=== PATIENT | female | born 1980 | race Caucasian/White ===

== ENCOUNTER 2017-02-22 16:42 | Emergency (ER) | payer MEDICAID ==
[~2017-02-22] VITALS: Ht 149.9 cm; Wt 62.6 kg
[~2017-02-22 16:42] MED LIST: NORCO 5-325 TA1 EACH ORAL; NORVASC2.5 MG ORAL
[2017-02-22 17:20] LABS: APPEARANCE,URINE CLEAR; KETONES,URINE NEGATIVE (NEGATIVE); LEUKOCYTE ESTERASE ,URINE 1+ (NEGATIVE); NITRITE,URINE NEGATIVE (NEGATIVE); PH,URINE 7 (4.5-8.0); PROTEIN,URINE 1+ (NEGATIVE); UROBILINOGEN,URINE NORMAL MG/DL (0.0-1.0)
[2017-02-22 17:31] LABS: BACTERIA,URINE FEW /HPF; SQUAMOUS EPITHELIAL CELL,UR FEW /LPF (NONE/OCC)
--- NOTE | 2017-02-22 17:47 | Emergency Room Report ---
History of Present Illness General Chief Complaint: General Complaint Source: Patient (Stephany Joseph) Present Illness HPI 36 YO female presents to the ED c/o left sided flank pain that radiates into the abdomen intermittently x 3 days. pt. reports episodes of sharp 10/10 in severity of pain then no pain at all. pt. states after her last episode of flank pain she felt as though her stomach became swollen, with tenderness. pt. denies nausea/vomiting, constipation, diarrhea, hematuria, frequency, , urgency. pt. denies fevers and reports intermittent chills. pt also reports recent hx of cough x 3 days. coughing exacerbates pain. denies trauma or fall. denies cardiac hx. Denies CP, Palpitations, LOC, AMS, dizziness, Changes in Vision, Sensation, paresthesias, or a sudden severe headache. (Stephany Joseph) Allergies: Coded Allergies: No Known Allergies (Unverified , 01/05/16) Patient History Past Medical History: see triage record Past Surgical History: none Pertinent Family History: none Last Menstrual Period: 02/18/17 Now: No : 4 Para: 3 Reviewed Nursing Documentation: PMH: Agreed, PSxH: Agreed (Stephany Joseph) Nursing Documentation-PMH Past Medical History: No History, Except For Hx Hypertension: Yes (Stephany Joseph) Review of Systems All Other Systems: negative except mentioned in HPI (Stephany Joseph) Physical Exam Vital Signs Date Time Temp Pulse Resp B/P Pulse Ox O2 Delivery O2 Flow Rate FiO2 02/22/17 16:51 98.4 89 14 153/92 100 Room Air Sp02 EP Interpretation: reviewed, normal General Appearance: no apparent distress, alert, GCS 15, non-toxic Head: normocephalic, atraumatic Eyes: bilateral eye PERRL, bilateral eye normal inspection ENT: hearing grossly normal, normal pharynx, no angioedema, normal voice, TMs + canals normal, uvula midline Neck: full range of motion, supple/symm/no masses Respiratory: chest non-tender, lungs clear, normal breath sounds, speaking full sentences Cardiovascular #1: regular rate, rhythm, no edema Gastrointestinal: normal bowel sounds, non tender, soft, no bruit, non- distended, no guarding, no rebound Rectal: deferred Genitourinary: normal inspection, no CVA tenderness Musculoskeletal: back normal, gait/station normal, normal range of motion, non- tender, tender - left sided paraspinal TTP, no midline TTP, no bruises. Neurologic: alert, oriented x3, responsive, motor strength/tone normal, sensory intact, normal gait, speech normal Psychiatric: judgement/insight normal, memory normal, mood/affect normal, no suicidal/homicidal ideation Skin: normal color, no rash, warm/dry, well hydrated Lymphatic: no adenopathy (Stephany Joseph) Medical Decision Making PA Attestation Dr. Hayward is my supervising Physician whom patient management has been discussed with. (Stephany Joseph) Diagnostic Impression: Primary Impression: Muscle strain Additional Impression: Flank pain, acute ER Course 36 YO female presents to the ED c/o left sided flank pain that radiates into the abdomen intermittently x 3 days. pt. reports episodes of sharp 10/10 in severity of pain then no pain at all. pt. states after her last episode of flank pain she felt as though her stomach became swollen, with tenderness. pt. denies nausea/vomiting, constipation, diarrhea, hematuria, frequency, , urgency. pt. denies fevers and reports intermittent chills. pt also reports recent hx of cough x 3 days. denies cardiac hx. Ddx considered but are not limited to Diverticulitis, acute appy, diarrhea,UC, PUD, GE, pancreatitis, gallstone, kidney stone, pyelonephritis, UTI, obstruction. Vital signs: are WNL, pt. is afebrile H&PE are most consistent with possible UTI , most likely muscle strain secondary to coughing. or passed kidney stone. pt. is NAD, non-toxic ORDERS: -CBC, CMP, lipase: all unremarkable - UA: no evidence of infection, some rbc's and occult blood consistent with pt. hx of being on period. ED INTERVENTIONS: -none required at this time. pt. does not have any pain, NAD DISCHARGE: At this time pt. is stable for d/c to home. Will provide printed patient care instructions, and any necessary prescriptions. Care plan and follow up instructions have been discussed with the patient prior to discharge. Labs Test 02/22/17 16:58 02/22/17 17:20 Urine Color Pale yellow Urine Appearance Clear Urine pH 7 (4.5-8.0) Urine Specific [place] 1.005 (1.005-1.035) Urine Protein 1+ (NEGATIVE) Urine Glucose (UA) Negative (NEGATIVE) Urine Ketones Negative (NEGATIVE) Urine Occult Blood 5+ (NEGATIVE) Urine Nitrite Negative (NEGATIVE) Urine Bilirubin Negative (NEGATIVE) Urine Urobilinogen Normal MG/DL (0.0-1.0) Urine Leukocyte Esterase 1+ (NEGATIVE) Urine RBC 5-10 /HPF (0 - 2) Urine WBC 2-4 /HPF (0 - 2) Urine Squamous Epithelial Cells Few /LPF (NONE/OCC) Urine Bacteria Few /HPF (NONE) Urine HCG, Qualitative Negative White Blood Count 7.6 K/UL (4.8-10.8) Red Blood Count 4.71 M/UL (4.20-5.40) Hemoglobin 10.5 G/DL (12.0-16.0) Hematocrit 35.5 % (37.0-47.0) Mean Corpuscular Volume 75 FL (80-99) Mean Corpuscular Hemoglobin 22.3 PG (27.0-31.0) Mean Corpuscular Hemoglobin Concent 29.6 G/DL (32.0-36.0) Red Cell Distribution Width 15.2 % (11.6-14.8) Platelet Count 339 K/UL (150-450) Mean Platelet Volume 7.2 FL (6.5-10.1) Neutrophils (%) (Auto) 76.8 % (45.0-75.0) Lymphocytes (%) (Auto) 18.2 % (20.0-45.0) Monocytes (%) (Auto) 4.4 % (1.0-10.0) Eosinophils (%) (Auto) 0.1 % (0.0-3.0) Basophils (%) (Auto) 0.5 % (0.0-2.0) Sodium Level 141 mEQ/L (135-145) Potassium Level 3.3 mEQ/L (3.4-4.9) Chloride Level 99 mEQ/L (98-107) Carbon Dioxide Level 24 mEQ/L (20-30) Anion Gap 18 (5-15) Blood Urea Nitrogen 6 mg/dL (7-23) Creatinine 0.6 mg/dL (0.5-0.9) Estimat Glomerular Filtration Rate > 60 mL/min (>60) Glucose Level 99 mg/dL (74-106) Calcium Level 9.1 mg/dL (8.6-10.2) Lipase 17 U/L (< 60) (Stephany Joseph) ER Course I evaluated this patient in the ED at [facility] with my advanced practice provider (Physician Bumper Machine Operator) colleague, who practices under my general supervision. My impressions concur with the advanced practice provider in regards to their obtained history of present illness, physical exam, general management, diagnosis, and disposition. In particular, I agree with PA-obtained interpretation of imaging, rhythm strip. For the evening and overnight shifts, we do not have the benefit of an in-house Radiologist to review xrays so our interpretation may be limited. Patients are to be discharged only with normal vital signs (or if we discussed a particular exception), a plan for follow-up care, and understand to return to the ED for worsening symptoms. Please see midlevel healthcare providers note for further details. (CHARU HAYWARD M.D.) Last Vital Signs Date Time Temp Pulse Resp B/P Pulse Ox O2 Delivery O2 Flow Rate FiO2 02/22/17 16:51 98.4 89 14 153/92 100 Room Air (Stephany Joseph) Disposition: HOME, SELF-CARE Condition: Stable Scripts Guaifenesin/Dextromethorphan (Robitussin Cough-Chest Dm Liq) 118 Ml Liquid 5 ML PO Q6HR, #118 ML Prov: Stephany Joseph 02/22/17 Acetaminophen* (TYLENOL EXTRA STRENGTH*) 500 Mg Tablet 500 MG ORAL Q6H, #30 TAB 0 Refills Prov: Stephany Joseph 02/22/17 Referrals: NOT CHOSEN [facility]/MD,REFERRING (PCP) Patient Instructions: Flank Pain, [id number], Muscle Strain, [id number] Additional Instructions: Take medications as directed. Follow up with PCP in 3-5 days Return sooner to ED if new symptoms occur, or current symptoms become worse. - Please note that this Emergency Department Report was dictated using Volexintensive care specialist technology software, occasionally this can lead to erroneous entry secondary to interpretation by the dictation equipment. Stephany Joseph Feb 22, 2017 17:47 CHARU HAYWARD M.D. Feb 25, 2017 14:06
[2017-02-22 17:48] LABS: ANION GAP 18 (5-15); BASOPHILS % (AUTO) 0.5 % (0.0-2.0); CALCIUM 9.1 mg/dL (8.6-10.2); CARBON DIOXIDE 24 mEQ/L (20-30); CHLORIDE 99 mEQ/L (98-107); CREATININE 0.6 mg/dL (0.5-0.9); EOSINOPHILS % (AUTO) 0.1 % (0.0-3.0); GLOMERULAR FILTRATION RATE > 60 mL/min (>60); HEMOLYSIS 0; LYMPHOCYTES % (AUTO) 18.2 % (20.0-45.0); MEAN CORPUSCULAR HEMOGLOBIN 22.3 PG (27.0-31.0); MEAN CORPUSCULAR HGB CONC 29.6 G/DL (32.0-36.0); MEAN CORPUSCULAR VOLUME 75 FL (80-99); MEAN PLATELET VOLUME 7.2 FL (6.5-10.1); MONOCYTES % (AUTO) 4.4 % (1.0-10.0); NEUTROPHILS % (AUTO) 76.8 % (45.0-75.0); PLATELET COUNT 339 K/UL (150-450); POTASSIUM 3.3 mEQ/L (3.4-4.9); RED BLOOD COUNT 4.71 M/UL (4.20-5.40); RED CELL DISTRIBUTION WIDTH 15.2 % (11.6-14.8); SODIUM 141 mEQ/L (135-145); WHITE BLOOD COUNT 7.6 K/UL (4.8-10.8)
[2017-02-22] MEDS ORDERED: TYLENOL EXTRA500 MG ORAL (18:22)
[2017-02-22] MEDS ORDERED: ROBITUSSIN COU118 M4 PO (18:22)
[2017-02-22 18:46] VITALS: BP 148/94
[2017-02-22 18:48] VITALS: BP 148/94
== END 2017-02-22 18:50 | disposition home or self-care (01) ==
LOC: EMR 17:01
DX: R10.9 Unspecified abdominal pain (principal); T14.8 Other injury of unspecified body region; I10 Essential (primary) hypertension; X58.XXXA Exposure to other specified factors, initial encounter; Y92.9 Unspecified place or not applicable; Y99.8 Other external cause status
CPT/HCPCS: 36415; 80048; 81003; 81025; 83690; 85025; 99284

== ENCOUNTER 2017-08-18 18:39 | Emergency (ER) | payer MEDICAID ==
[~2017-08-18] VITALS: Ht 160 cm; Wt 59.0 kg
[~2017-08-18 18:39] MED LIST changes: +ROBITUSSIN COU118 M4 PO; +TYLENOL EXTRA500 MG ORAL
[2017-08-18 19:08] VITALS: BP 144/88
[2017-08-18] MEDS ORDERED: ROBAXIN-750750 MG PO (19:54)
[2017-08-18] MEDS ORDERED: IBUPROFEN600 MG ORAL (19:54)
[2017-08-18 20:00] VITALS: BP 144/88
--- NOTE | 2017-08-18 22:45 | Emergency Room Report ---
History of Present Illness General Chief Complaint: Back Pain-No Injury Source: Patient Present Illness HPI The patient is a 37-year-old female presenting for upper back pain which began 4 days prior for no known reason. Pain is an 8/10 dull ache and is worse with arm movement. Patient also worse with deep breaths. She denies any known injury to this area. She has not tried any medications yet for the pain. She denies any other symptoms including nausea, vomiting, fever, chills, shortness of breath, chest pain Allergies: Coded Allergies: PENICILLINS (Verified Allergy, Unknown, 08/18/17) Patient History Past Medical History: see triage record Pertinent Family History: none Reviewed Nursing Documentation: PMH: Agreed, PSxH: Agreed Nursing Documentation-PMH Past Medical History: No History, Except For Hx Hypertension: Yes Review of Systems All Other Systems: negative except mentioned in HPI Physical Exam Vital Signs Date Time Temp Pulse Resp B/P (MAP) Pulse Ox O2 Delivery O2 Flow Rate FiO2 08/18/17 18:42 98.4 80 20 144/88 99 Room Air Sp02 EP Interpretation: reviewed, normal General Appearance: no apparent distress, alert, GCS 15, non-toxic Head: normocephalic, atraumatic Eyes: bilateral eye normal inspection, bilateral eye PERRL ENT: hearing grossly normal, normal pharynx, no angioedema, normal voice Neck: full range of motion, supple/symm/no masses Respiratory: chest non-tender, lungs clear, normal breath sounds, speaking full sentences Cardiovascular #1: regular rate, rhythm, no edema Musculoskeletal: normal inspection, back normal, normal range of motion, tender - bilat trapezii Neurologic: alert, oriented x3, responsive, motor strength/tone normal, sensory intact, speech normal Psychiatric: judgement/insight normal, memory normal, mood/affect normal, no suicidal/homicidal ideation Skin: normal color, no rash, warm/dry, well hydrated Medical Decision Making PA Attestation Dr. Hernandez is my supervising physician. Patient management was discussed with my supervising physician Diagnostic Impression: Primary Impression: Muscle strain ER Course The patient is a 37-year-old female presenting for upper back pain Ddx considered include but not limited to sprain/strain, fracture, contusion, bronchitis, among others PE: NAD There is tenderness to palpation over bilateral trapezii. Normal active range of motion of the neck and shoulders. Lungs are clear to auscultation bilaterally The patient will be treated with a prescription for Motrin and Robaxin and is to follow up with her primary doctor. ER precautions are given Chest X-Ray Diagnostic Results Chest X-Ray Diagnostic Results : Chest X-Ray Ordered: Yes # of Views/Limited/Complete: 1 View Indication: Other - upper back pain EP Interpretation: Yes Interpretation: no consolidation, no effusion Impression: No acute disease Electronically Signed by: GENET Brower Scribe Text My and my supervising physician's interpretation of the chest xrays are there is no consolidation, no effusion, no acute cardiopulmonary disease, no pneumothorax Last Vital Signs Date Time Temp Pulse Resp B/P (MAP) Pulse Ox O2 Delivery O2 Flow Rate FiO2 08/18/17 19:08 98.4 73 20 144/88 99 Room Air Status: improved Disposition: HOME, SELF-CARE Condition: Improved Scripts Ibuprofen* (MOTRIN*) 600 Mg Tablet 600 MG ORAL Q8H Y for For Pain, #30 TAB 0 Refills Prov: FAM NATION 08/18/17 Methocarbamol* (ROBAXIN-750*) 750 Mg Tablet 750 MG PO TID, #21 TAB 0 Refills Prov: FAM NATIONA. 08/18/17 Referrals: NOT CHOSEN [facility]/MD,REFERRING (PCP) Patient Instructions: Back Pain, Adult Additional Instructions: I discussed my findings with the patient. All questions and concerns have been answered. Treatment and medication compliance have been addressed. I advised the patient that they need to follow up with PMD in 3-5 days. Return to ED if symptoms worsen, new symptoms arise, or if needed for any reason. Patient verbalized understanding of discharge instructions. FAM NATION Aug 18, 2017 22:45
--- NOTE | 2017-08-19 12:04 | Diagnostic Imaging Report ---
Indication: Shortness of breath Comparison: 10/15/2016 chest one view Findings: Single view of the chest shows a normal cardiomediastinal silhouette. Pulmonary vasculature is normal. Lung are clear. Soft tissues and osseous structures are within normal limits. Impression: Normal chest.
== END 2017-08-18 20:00 | disposition home or self-care (01) ==
LOC: EMR 19:16
DX: S29.012A Strain of muscle and tendon of back wall of thorax, initial encounter (principal); X58.XXXA Exposure to other specified factors, initial encounter; Y93.9 Activity, unspecified; Y99.9 Unspecified external cause status; Z88.0 Allergy status to penicillin
CPT/HCPCS: 71010; 99284

== ENCOUNTER 2017-09-14 17:13 | Emergency (ER) | payer MEDICAID ==
[~2017-09-14] VITALS: Ht 154.9 cm; Wt 57.2 kg
[~2017-09-14 17:13] MED LIST changes: +IBUPROFEN600 MG ORAL; +ROBAXIN-750750 MG PO
[2017-09-14 17:32] VITALS: BP 147/84
[2017-09-14 18:17] LABS: APPEARANCE,URINE CLEAR; KETONES,URINE 2+ (NEGATIVE); LEUKOCYTE ESTERASE ,URINE 2+ (NEGATIVE); NITRITE,URINE NEGATIVE (NEGATIVE); PH,URINE 6 (4.5-8.0); PROTEIN,URINE NEGATIVE (NEGATIVE); UROBILINOGEN,URINE NORMAL MG/DL (0.0-1.0)
[2017-09-14 18:24] LABS: MEAN CORPUSCULAR HEMOGLOBIN 17.4 PG (27.0-31.0); MEAN CORPUSCULAR HGB CONC 27.1 G/DL (32.0-36.0); MEAN CORPUSCULAR VOLUME 64 FL (80-99); MEAN PLATELET VOLUME 6.3 FL (6.5-10.1); PLATELET COUNT 446 K/UL (150-450); RED BLOOD COUNT 4.04 M/UL (4.20-5.40); WHITE BLOOD COUNT 6.9 K/UL (4.8-10.8)
[2017-09-14 18:31] LABS: BACTERIA,URINE FEW /HPF; SQUAMOUS EPITHELIAL CELL,UR FEW /LPF (NONE/OCC)
[2017-09-14 18:40] LABS: ALANINE AMINOTRANSFERASE 11 U/L (12-78); ALBUMIN/GLOBULIN RATIO 1.1 (1.0-2.7); ANION GAP 14 mmol/L (5-15); ASPARTATE AMINO TRANSFERASE 14 U/L (15-37); CALCIUM 9.3 MG/DL (8.5-10.1); CARBON DIOXIDE 23 MMOL/L (21-32); CHLORIDE 102 MMOL/L (98-107); CREATININE 0.6 MG/DL (0.55-1.30); GLOMERULAR FILTRATION RATE > 60 mL/min (>60); LIPASE 94 U/L (73-393); POTASSIUM 3.1 MMOL/L (3.5-5.1); SODIUM 139 MMOL/L (136-145); TOTAL PROTEIN 8.5 G/DL (6.4-8.2)
--- NOTE | 2017-09-14 18:41 | Emergency Room Report ---
History of Present Illness General Chief Complaint: General Complaint Source: Patient, Medical Record Present Illness HPI Patient presents emergency department today complaining of difficulty swallowing. Patient states that she has been having difficulty swallowing over last couple weeks. She denies any nausea or vomiting. She complains of some mild chest discomfort when she status while. She denies any diarrhea patient denies any primary care physician. She denies any cough runny nose or sore throat. Symptoms noted to be moderate. No other modifying factors. No other associated signs and symptoms. No other complaints were noted.She is able to tolerate oral fluids and has been drinking water. Allergies: Coded Allergies: PENICILLINS (Verified Allergy, Unknown, 08/18/17) Patient History Past Medical History: none Past Surgical History: none Pertinent Family History: none Social History: Denies: smoking, alcohol use, drug use Last Menstrual Period: 09/08/17 Reviewed Nursing Documentation: PMH: Agreed, PSxH: Agreed Nursing Documentation-PMH Hx Hypertension: Yes Review of Systems All Other Systems: negative except mentioned in HPI Physical Exam Vital Signs Date Time Temp Pulse Resp B/P (MAP) Pulse Ox O2 Delivery O2 Flow Rate FiO2 09/14/17 17:24 97.9 86 18 147/84 100 Room Air Sp02 EP Interpretation: reviewed, normal General Appearance: normal inspection, well appearing, no apparent distress, alert Head: atraumatic Eyes: bilateral eye normal inspection ENT: normal ENT inspection, hearing grossly normal, normal voice Neck: normal inspection, full range of motion, supple, no bony tend Respiratory: normal inspection, lungs clear, normal breath sounds, no respiratory distress, no retraction, no wheezing Cardiovascular #1: regular rate, rhythm, no edema Gastrointestinal: normal inspection, normal bowel sounds, non tender, soft, no guarding, no hernia Genitourinary: no CVA tenderness Musculoskeletal: normal inspection, back normal, normal range of motion Neurologic: normal inspection, alert, responsive, speech normal Psychiatric: normal inspection, judgement/insight normal, mood/affect normal Skin: normal inspection, normal color, no rash Medical Decision Making Diagnostic Impression: Primary Impression: UTI (urinary tract infection) Qualified Codes: N30.00 - Acute cystitis without hematuria Additional Impression: Anemia Qualified Codes: D50.9 - Iron deficiency anemia, unspecified ER Course Patient presents emergency department today with weakness and difficulty eating. Differential considerations include gastritis, esophagitis, pharyngitis , cancer just to name a few.Given the severity of the patient's presentation I felt this is a highly complex patient. This patient required extensive workup. Patient laboratory workup showed evidence of anemia and UTI. Patient was given antibiotics for this. And iron. Patient's x-rays were normal. Patient was nontoxic-appearing. Therefore I felt the patient was suitable for outpatient management. Patient was given prescription of antibiotics and iron. Recommend close followup. Recommend outpatient endoscopy. Advised to return to ER if worse.Patient is advised to follow up with primary doctor in 2-3 days and return the emergency room for any worsening symptoms and as needed. Labs Test 09/14/17 18:00 White Blood Count 6.9 K/UL (4.8-10.8) Red Blood Count 4.04 M/UL (4.20-5.40) Hemoglobin 7.0 G/DL (12.0-16.0) Hematocrit 26.1 % (37.0-47.0) Mean Corpuscular Volume 64 FL (80-99) Mean Corpuscular Hemoglobin 17.4 PG (27.0-31.0) Mean Corpuscular Hemoglobin Concent 27.1 G/DL (32.0-36.0) Red Cell Distribution Width 16.0 % (11.6-14.8) Platelet Count 446 K/UL (150-450) Mean Platelet Volume 6.3 FL (6.5-10.1) Neutrophils (%) (Auto) % (45.0-75.0) Lymphocytes (%) (Auto) % (20.0-45.0) Monocytes (%) (Auto) % (1.0-10.0) Eosinophils (%) (Auto) % (0.0-3.0) Basophils (%) (Auto) % (0.0-2.0) Differential Total Cells Counted 100 Neutrophils % (Manual) 58 % (45-75) Lymphocytes % (Manual) 31 % (20-45) Monocytes % (Manual) 8 % (1-10) Eosinophils % (Manual) 2 % (0-3) Basophils % (Manual) 0 % (0-2) Band Neutrophils 1 % (0-8) Platelet Estimate Increased Platelet Morphology Normal Polychromasia 1+ Hypochromasia 2+ Anisocytosis 2+ Microcytosis 2+ Target Cells 1+ Urine Color Pale yellow Urine Appearance Clear Urine pH 6 (4.5-8.0) Urine Specific [place] 1.010 (1.005-1.035) Urine Protein Negative (NEGATIVE) Urine Glucose (UA) Negative (NEGATIVE) Urine Ketones 2+ (NEGATIVE) Urine Occult Blood 3+ (NEGATIVE) Urine Nitrite Negative (NEGATIVE) Urine Bilirubin Negative (NEGATIVE) Urine Urobilinogen Normal MG/DL (0.0-1.0) Urine Leukocyte Esterase 2+ (NEGATIVE) Urine RBC 2-4 /HPF (0 - 2) Urine WBC 10-15 /HPF (0 - 2) Urine Squamous Epithelial Cells Few /LPF (NONE/OCC) Urine Bacteria Few /HPF (NONE) Urine HCG, Qualitative Negative Sodium Level 139 MMOL/L (136-145) Potassium Level 3.1 MMOL/L (3.5-5.1) Chloride Level 102 MMOL/L (98-107) Carbon Dioxide Level 23 MMOL/L (21-32) Anion Gap 14 mmol/L (5-15) Blood Urea Nitrogen 7 mg/dL (7-18) Creatinine 0.6 MG/DL (0.55-1.30) Estimat Glomerular Filtration Rate > 60 mL/min (>60) Glucose Level 84 MG/DL (74-106) Calcium Level 9.3 MG/DL (8.5-10.1) Total Bilirubin 0.5 MG/DL (0.2-1.0) Aspartate Amino Transf (AST/SGOT) 14 U/L (15-37) Alanine Aminotransferase (ALT/SGPT) 11 U/L (12-78) Alkaline Phosphatase 63 U/L (46-116) Total Protein 8.5 G/DL (6.4-8.2) Albumin 4.4 G/DL (3.4-5.0) Globulin 4.1 g/dL Albumin/Globulin Ratio 1.1 (1.0-2.7) Lipase 94 U/L (73-393) Chest X-Ray Diagnostic Results Chest X-Ray Diagnostic Results : Chest X-Ray Ordered: Yes # of Views/Limited/Complete: 1 View Indication: Chest Pain EP Interpretation: Yes Interpretation: no consolidation, no effusion, no pneumothorax, no acute cardiopulmonary disease Impression: No acute disease Electronically Signed by: Electronically signed by Waldo Beltran MD Last Vital Signs Date Time Temp Pulse Resp B/P (MAP) Pulse Ox O2 Delivery O2 Flow Rate FiO2 09/14/17 17:32 97.9 74 18 147/84 100 Room Air Status: improved Disposition: HOME, SELF-CARE Condition: Stable Scripts Famotidine (PEPCID) 40 Mg Tablet 40 MG PO QHS, #20 TAB 0 Refills Prov: WALDO BELTRAN M.D. 09/14/17 Ferrous Sulfate* (FERROUS SULFATE*) 325 Mg Tablet 325 MG ORAL THREE TIMES A DAY, #90 TAB 0 Refills Prov: WALDO BELTRAN M.D. 09/14/17 Trimethoprim/Sulfamethoxazole 160/800* (BACTRIM DS TABLET*) 1 Each Tablet 1 TAB ORAL Q12H, #14 TAB 0 Refills Prov: WALDO BELTRAN M.D. 09/14/17 Referrals: NOT CHOSEN [place]/,REFERRING (PCP) WALDO BELTRAN M.D. Sep 14, 2017 18:41
[2017-09-14] MEDS ORDERED: PEPCID40 MG PO (19:51)
[2017-09-14] MEDS ORDERED: FERROUS SULFAT325 MG ORAL (19:51)
[2017-09-14] MEDS ORDERED: BACTRIM DS TAB1 EAC1 ORAL (19:51)
[2017-09-14 19:55] LABS: BAND NEUTROPHILS % (MANUAL) 1 % (0-8); EOSINOPHILS % (MANUAL) 2 % (0-3); LYMPHOCYTES % (MANUAL) 31 % (20-45); NEUTROPHILS % (MANUAL) 58 % (45-75); TOTAL CELLS COUNTED 100
[2017-09-14 19:59] LABS: ANISOCYTOSIS 2+; BASOPHILS % (MANUAL) 0 % (0-2); HYPOCHROMASIA 2+; MICROCYTES 2+; PLATELET ESTIMATE INCREASED; PLATELET MORPHOLOGY NORMAL; POLYCHROMASIA 1+
[2017-09-14 20:00] VITALS: BP 138/72
[2017-09-14 20:00] LABS: TARGET CELLS 1+
[2017-09-14 20:33] VITALS: BP 138/72
--- NOTE | 2017-09-15 10:25 | Diagnostic Imaging Report ---
Indication: COUGH Technique: One view of the chest Comparison: 08/18/2017 Findings: Lungs and pleural spaces are clear. Heart size is normal. No significant change Impression: No acute process This agrees with the preliminary interpretation provided by the emergency room physician
== END 2017-09-14 20:30 | disposition home or self-care (01) ==
LOC: EMR 17:41
DX: N39.0 Urinary tract infection, site not specified (principal); Z88.0 Allergy status to penicillin; I10 Essential (primary) hypertension; D64.9 Anemia, unspecified
CPT/HCPCS: 36415; 71010; 80053; 81003; 81025; 83690; 85007; 85025; 87086; 87181; 99284